=== PATIENT | female | born 1970 | race Hispanic/Latino ===

== ENCOUNTER 2018-10-21 22:55 | Emergency (ER) | payer OTHER ==
[~2018-10-21] VITALS: Ht 165.1 cm; Wt 72.6 kg
[2018-10-21] MEDS ORDERED: AMLODIPINE BESYLATE 10 MG TAB PO ONE (23:15)
[2018-10-21] MEDS ORDERED: AMLODIPINE BESYLATE 10 MG TAB ONE (23:16)
[2018-10-22 01:03] VITALS: BP 143/60
== END 2018-10-22 01:12 | disposition home or self-care (01) ==
LOC: FSED 22:55
DX: R51 Headache (principal); I10 Essential (primary) hypertension
CPT/HCPCS: 80048; 85025; 99284

== ENCOUNTER 2018-10-25 21:21 | Emergency (ER) | payer OTHER | END 2018-10-25 22:15 | disposition left against medical advice (07) | LOC: FSED 21:21 | DX: I10 Essential (primary) hypertension (principal) ==

== ENCOUNTER 2018-10-25 23:59 | Emergency (ER) | payer OTHER ==
[~2018-10-25] VITALS: Ht 165.1 cm; Wt 72.6 kg
--- NOTE | 2018-10-26 01:35 | Diagnostic Imaging Report ---
EXAMINATION: Head CT HISTORY: Migraine headaches, facial numbness, right occipital pain. COMPARISON: None. TECHNIQUE: Multidetector axial images were obtained without contrast from the foramen magnum to the vertex . The images were reconstructed using brain and bone algorithms. Thin section brain images were reformatted into coronal and sagittal planes. Image quality: Motion/streaking artifact limits the evaluation of the skull base and posterior cranial fossa. Dose modulation, iterative reconstruction, and/or weight based adjustment of the mA/kV was utilized to reduce the radiation dose to as low as reasonably achievable. FINDINGS: Parenchyma: 1. No abnormal densities. Incidentally noted minimal likely physiologic calcification of the bilateral globi pallidi. 2. No mass or hemorrhage. No CT evidence of acute territorial vascular insult. Extra-axial spaces:No abnormal density. No extra-axial fluid collections Brain volume: Normal for age. Ventricles: No hydrocephalus or displacement. Arteries: No density suggestive of thrombus. Dural sinuses: No abnormal density. Extra-axial spaces: No abnormal density. Foramen magnum: No mass, Chiari malformation, or basilar invagination. Sella: No obvious mass. Paranasal/mastoid sinuses: Imaged portions unremarkable. Skull/Scalp: No lytic or blastic lesions. No fractures. IMPRESSION: No intracranial abnormalities. Signed by: Dr. Rupinder Prado M.D. on 10/26/2018 1:32 AM
[2018-10-26] MEDS ORDERED: POTASSIUM CHLORIDE 20 MEQ TAB CR PO STA (01:48)
[2018-10-26] MEDS ORDERED: POTASSIUM CHLORIDE 20 MEQ TAB CR PO ONE (01:58)
== END 2018-10-26 02:25 | disposition home or self-care (01) ==
LOC: FSED 23:59
DX: G44.211 Episodic tension-type headache, intractable (principal); I10 Essential (primary) hypertension; E87.6 Hypokalemia; K52.9 Noninfective gastroenteritis and colitis, unspecified
CPT/HCPCS: 70450; 80053; 85025; 99283